=== PATIENT | female | born 1975 | race Caucasian/White ===

== ENCOUNTER 2016-08-20 17:48 | Emergency (ER) | payer OTHER ==
[2016-08-20 17:53] VITALS: BP 115/74; PULSE 84; RESP 16; TEMP 97.2
--- NOTE | 2016-08-20 18:00 | ED ---
Upper Extremity HPI - General Chief Complaint: Extremity Injury, Upper Stated Complaint: RT HANDF INJURY FROM TRIP AND FALL Time Seen by Provider: 08/20/16 17:54 Source: patient, RN notes reviewed Mode of arrival: ambulatory Limitations: no limitations - History of Present Illness Initial Comments: 41-year-old female presents to the emergency department with a chief complaint of right hand pain. Patient states she fell onto her right hand complaint. Today. Patient now has increase of the thumb. Patient states she did not hit her head she has no other injuries from the incident.Patient denies any recent fever, chills, shortness of breath, chest pain, back pain, abdominal pain, nausea vomiting, numbness or tingling, dysuria or hematuria, constipation or diarrhea, headaches or visual changes, or any other current symptoms. MD Complaint: Injury to:: right Other Extremity Injury: Hand: Right Other Injuries: none Place: home Severity scale (1-10): 5 Improves With: none Worsens With: none Context: fall Associated Symptoms: denies other symptoms - Related Data Previous Rx's Medication Instructions Recorded Ibuprofen [Motrin] 800 mg PO Q6HR PRN #20 tab 08/20/16 Allergies Allergy/AdvReac Type Severity Reaction Status Date / Time No Known Allergies Allergy Verified 08/20/16 17:53 Review of Systems ROS Statement: Those systems with pertinent positive or pertinent negative responses have been documented in the HPI. ROS Other: All systems not noted in ROS Statement are negative. Past Medical History Past Medical History: No Reported History Additional Past Medical History / Comment(s): kidney stones History of Any Multi-Drug Resistant Organisms: None Reported Past Surgical History: Orthopedic Surgery, Tubal Ligation Past Psychological History: No Psychological Hx Reported Smoking Status: Current every day smoker Past Alcohol Use History: None Reported Past Drug Use History: Marijuana General Exam - General Exam Comments Initial Comments: General: The patient is awake and alert, in no distress, and does not appear acutely ill. Neck: The neck is supple, there is no tenderness. Cardiovascular: There is a regular rate and rhythm. No murmur, rub or gallop is appreciated. Respiratory: Lungs are clear to auscultation, respirations are non-labored, breath sounds are equal. No wheezes, stridor, rales, or rhonchi. Musculoskeletal: Sensation was drinking fluids. The right upper extremity. Full range of motion of the right wrist and right hand. Patient does appear to have anatomical snuffbox tenderness. No tenderness throughout the hand. The knee. No swelling. Neurological: CN II-XII intact, There are no obvious motor or sensory deficits. Coordination appears grossly intact. Speech is normal. Skin: Skin is warm and dry and no rashes or lesions are noted. Psychiatric: Normal mood and affect. Limitations: no limitations Course Vital Signs 08/20/16 17:49 Temperature 97.2 F L Pulse Rate 84 Respiratory 16 Rate Blood Pressure 115/74 O2 Sat by Pulse 99 Oximetry Procedures - Orthopedic Splinting/Casting Injury #1 Side: right Upper Extremity Injury Location: hand Upper Extremity Immobilizer: thumb spica (short arm) Medical Decision Making - Medical Decision Making 41-year-old female presents for a right hand pain. This time x-rays reviewed acute process of the scaphoid with she is tender over the anatomical snuffbox. This time we did place her in a splint and give her follow-up with orthopedic. We discussed return Parameters and all the patient's family's questions. She stated that she understood and she is in agreement with the plan. This time she' ll be discharged home. Disposition Clinical Impression: Sprain of right hand, Scaphoid fracture of wrist Disposition: HOME SELF-CARE Condition: Stable Instructions: Hand Fracture (ED), Hand Sprain (ED) Additional Instructions: Please use medication as discussed. Please follow up with family doctor if symptoms have not improved over the next two days. Please return to the emergency room if your symptoms increase or worsen or for any other concerns. Prescriptions: Ibuprofen [Motrin] 800 mg PO Q6HR PRN #20 tab PRN Reason: Pain Referrals: Wellington Joy DO [Primary Care Provider] - 1-2 days Time of Disposition: 18:37
--- NOTE | 2016-08-20 18:35 | XR ---
EXAMINATION TYPE: XR hand complete RT DATE OF EXAM: 08/20/2016 6:15 PM COMPARISON: NONE HISTORY: Pain after injury TECHNIQUE: 3 Views FINDINGS: On the oblique view there is a scaphoid waist submillimeter horizontal linear lucency, saul elate for anatomic snuffbox tenderness. Dedicated scaphoid view can be obtained to further characteri ze at this time. Alternatively, follow-up radiographs in 7 days can be obtained, or use of CT or MRI can be used for this purpose if clinically indicated. The bones and joints and soft tissues are otherwise negative for fracture or malalignment. IMPRESSION: SUSPICIOUS FINDING SUGGESTS THE POSSIBILITY OF NONDISPLACED SUBTLE SCAPHOID WAIST FRACTUR E.
--- NOTE | 2016-08-20 18:38 | ED ---
Disposition Clinical Impression: Sprain of right hand, Scaphoid fracture of wrist Disposition: HOME SELF-CARE Condition: Stable Instructions: Hand Fracture (ED), Hand Sprain (ED) Additional Instructions: Please use medication as discussed. Please follow up with family doctor if symptoms have not improved over the next two days. Please return to the emergency room if your symptoms increase or worsen or for any other concerns. Prescriptions: Ibuprofen [Motrin] 800 mg PO Q6HR PRN #20 tab PRN Reason: Pain Referrals: Wellington Joy DO [Primary Care Provider] - 1-2 days Sharan Mckeon MD [STAFF PHYSICIAN] - 1-2 days Time of Disposition: 18:38
== END 2016-08-20 18:50 | disposition home or self-care (01) ==
LOC: EC 17:48
DX: S62.001A Unspecified fracture of navicular [scaphoid] bone of right wrist, initial encounter for closed fracture (principal); S63.91XA Sprain of unspecified part of right wrist and hand, initial encounter; F17.200 Nicotine dependence, unspecified, uncomplicated; W01.0XXA Fall on same level from slipping, tripping and stumbling without subsequent striking against object, initial encounter; Y93.67 Activity, basketball
CPT/HCPCS: 29125; 99283

== ENCOUNTER → 2018-09-06 | Outpatient (CLI) | payer OTHER ==
--- NOTE | 2018-09-06 13:27 | XR ---
EXAMINATION TYPE: XR thoraco lumbar junction DATE OF EXAM: 09/06/2018 COMPARISON: NONE HISTORY: Pain TECHNIQUE: 3 views of the thoracolumbar junction submitted FINDINGS: Pedicles intact. Vertebral body height and disc interspaces preserved. There is hypertrophic spurring involving the upper lumbar spine. No compression deformities. IMPRESSION: 1. Hypertrophic spurring. Correlate with MRI as clinically warranted.
== END | disposition home or self-care (01) ==
LOC: RADXRMAIN 12:58
PROVIDERS: ATTEND Family Medicine
DX: M25.78 Osteophyte, vertebrae (principal); R10.9 Unspecified abdominal pain; M54.5 Low back pain
CPT/HCPCS: 72080

== ENCOUNTER → 2018-09-23 | Outpatient (CLI) | payer OTHER ==
--- NOTE | 2018-09-24 09:09 | CT ---
EXAMINATION TYPE: CT abdomen pelvis w con DATE OF EXAM: 09/23/2018 COMPARISON: 09/10/2015 INDICATION: Right sided flank and back pain. DLP: 642.5 mGycm, Automated exposure control for dose reduction was used. CONTRAST: 100ml mL of Isovue 300. Study performed with Oral Contrast TECHNIQUE: Axial images were obtained from above the diaphragm to the pubic rami in the axial plane a t 5 mm thick sections. Reconstructed images are reviewed on the computer in the coronal plane. FINDINGS: Limited CT sections are obtained the lung bases. The lung bases are clear. CT ABDOMEN: Liver: Normal Spleen: Normal Pancreas: Normal Adrenal glands: The adrenal glands are normal. Gallbladder: Normal Kidneys: No masses are evident. No hydronephrosis is present. No cysts are present. Delayed images were obtained through the kidneys, which remain unremarkable. No hydroureter is evident. Aorta: Normal Inferior vena cava: Normal. CT PELVIS: Loops of bowel within the abdomen and pelvis are normal. There are loops of bowel which are incom pletely distended or lack oral contrast limiting their evaluation. Appendix: Not identified. No suspicious tubular structures are evident. No suspicious mesenteric stra nding is evident. Urinary bladder: Normal. Genitourinary structures: Uterus appears normal. Adnexal regions are within normal limits. There is a probable cyst on the right kidney measuring 1.7 cm. No free fluid is pelvis. Osseous structures: No suspicious lytic or sclerotic lesions. IMPRESSIONS: 1. No suspicious abnormality to account for right flank and back pain
== END | disposition home or self-care (01) ==
LOC: RADCTMAIN 16:12
PROVIDERS: ATTEND Family Medicine
DX: R10.9 Unspecified abdominal pain (principal)
CPT/HCPCS: 74177; Q9967

== ENCOUNTER → 2018-12-15 | Outpatient (CLI) | payer OTHER ==
--- NOTE | 2018-12-15 08:02 | MR ---
EXAMINATION TYPE: MR tspine/lspine wo con DATE OF EXAM: 12/15/2018 COMPARISON: Thoracolumbar spine x-rays dated 09/06/2018 HISTORY: Pain in thoracic spine / Low back pain TECHNIQUE: Multiplanar, multisequence imaging of the thoracic and lumbar spine is performed without I V contrast. FINDINGS: Vertebral body heights and alignment are maintained of the thoracic spine. Multilevel disc desiccatio n is mild. Spinal cord signal is within normal limits. Bone marrow signal is also within normal limit s. No focal disc herniation, spinal canal stenosis, nor neural foraminal narrowing is seen of the tho racic spine. At T11-T12 there is a left paracentral annular tear. At T12-L1 there are Schmorl's nodes . Vertebral body heights and alignment are maintained of the lumbar spine. Multilevel disc desiccation is seen. T1/T2 hyperintense vertebral body hemangioma is present L1. Conus medullaris is unremarkable terminating at L1-L2. Rudimentary disc is present at S1-S2. Modic type II degenerative endplate wood ges are seen of the anterior aspect of the superior endplates of L3 and L4. L1-L2: Disc desiccation without spinal canal stenosis nor neuroforaminal narrowing. No focal disc her niation. L2-L3: There is a broad-based disc bulge and minimal facet arthropathy without spinal canal stenosis nor neural foraminal narrowing. Disc bulge is noted to be left eccentric with small annular tear is l eft foraminal on sagittal image 3 of the T2 weighted nonfat sat sequence. L3-L4: There is a left eccentric broad-based disc bulge creating mild left neural foraminal narrowing . Right neural foramen and spinal canal are patent. Minimal facet arthropathy. L4-L5: There is a left foraminal annular tear and small disc herniation superimposed upon a broad-bas ed disc bulge creating mild bilateral neural foraminal narrowing (left greater than right) without sp inal canal stenosis. Mild facet arthropathy and ligamentum flavum buckling are also seen. L5-S1: There is ligamentum flavum buckling and facet arthropathy as well as a broad-based disc bulge without spinal canal stenosis nor neural foraminal narrowing. No focal disc herniation. IMPRESSION: 1. Small left foraminal disc herniation at L4-L5 creating mild left neural foraminal narrowing. Mild right neural foraminal narrowing is also seen at this level to a lesser degree secondary to a broad-b ased disc bulge. 2. Left eccentric disc bulge at L3-L4 creating mild left neural foraminal narrowing. 3. Left eccentric disc bulge at L2-L3 with small left foraminal annular tear. 4. No focal disc herniation of the thoracic spine. Mild multilevel degenerative disc disease. 5. No vertebral body height loss nor malalignment of the thoracic nor lumbar spine.
== END | disposition home or self-care (01) ==
LOC: RADMRIMAIN 06:48
PROVIDERS: ATTEND Family Medicine
DX: M48.061 Spinal stenosis, lumbar region without neurogenic claudication (principal); M51.26 Other intervertebral disc displacement, lumbar region; M54.6 Pain in thoracic spine
CPT/HCPCS: 72146; 72148

== ENCOUNTER → 2020-08-31 | Outpatient (CLI) | payer OTHER | END | disposition home or self-care (01) | LOC: LABWHC1 08:23 | PROVIDERS: ATTEND Family Medicine | DX: Z20.822 Contact with and (suspected) exposure to COVID-19 (principal) | CPT/HCPCS: U0003; C9803; U0005 ==

== ENCOUNTER → 2022-07-03 | Outpatient (CLI) | payer OTHER ==
--- NOTE | 2022-07-03 16:21 | US ---
EXAMINATION TYPE: US venous doppler duplex LE RT DATE OF EXAM: 07/03/2022 4:01 PM COMPARISON: NONE CLINICAL HISTORY: R60.0 EDEMA. SIDE PERFORMED: Right TECHNIQUE: The lower extremity deep venous system is examined utilizing real time linear array sonog maurice with graded compression, doppler sonography and color-flow sonography. VESSELS IMAGED: Common Femoral Vein Deep Femoral Vein Greater Saphenous Vein * Femoral Vein Popliteal Vein Small Saphenous Vein * Proximal Calf Veins (* superficial vessels) Grayscale, color doppler, spectral doppler imaging performed of the deep veins of the lower extremiti es. There is normal flow, compressibility, vascular waveforms. Right Leg: Negative for DVT At discolouration is a superficial clot with no color flow identified. IMPRESSION: 1. No evidence for deep venous thrombosis of the right lower extremity. 2. Superficial venous thrombosis in the right anterior calf at site of discoloration.
== END | disposition home or self-care (01) ==
LOC: RADUSWWP 15:27
PROVIDERS: ATTEND Family Medicine
DX: I82.811 Embolism and thrombosis of superficial veins of right lower extremity (principal); R60.0 Localized edema

== ENCOUNTER → 2022-07-08 | Outpatient (CLI) | payer OTHER ==
--- NOTE | 2022-07-09 07:54 | MM ---
Reason for Exam: Screening (asymptomatic). Patient History: Menarche at age 15. First Full-Term at age 26. Premenopausal. Maternal grandmother had breast cancer. Paternal grandmother had breast cancer. Risk Values: Rosa 5 year model risk: 0.7%. NCI Lifetime model risk: 8.7%. Tissue Density: The breast tissue is heterogeneously dense. This may lower the sensitivity of mammography. Findings: Analyzed By CAD. There is no suspicious group of microcalcifications in either breast. Within the upper outer left breast approximately 6.8 cm from the nipple there is asymmetric density with the suggestion of distortion. Additional views are recommended. Overall Assessment: Incomplete: need additional imaging evaluation, BI-RAD 0 Management: Diagnostic Mammogram of the left breast. A clinical breast exam by your physician is recommended on an annual basis and results should be correlated with mammographic findings. Electronically signed and approved by: Shahid Jaime M.D. Radiologis
== END | disposition home or self-care (01) ==
LOC: RADMAMWWP 08:24
PROVIDERS: ATTEND Family Medicine
DX: Z12.31 Encounter for screening mammogram for malignant neoplasm of breast (principal); Z80.3 Family history of malignant neoplasm of breast
CPT/HCPCS: 77067

== ENCOUNTER → 2022-07-10 | Outpatient (CLI) | payer OTHER ==
--- NOTE | 2022-07-10 14:38 | MM ---
Reason for Exam: Additional evaluation requested from abnormal screening. Last screening mammogram was performed less than 1 month ago. Patient History: Menarche at age 15. First Full-Term at age 26. Premenopausal. Maternal grandmother had breast cancer. Paternal grandmother had breast cancer. Risk Values: Rosa 5 year model risk: 0.7%. NCI Lifetime model risk: 8.7%. Prior Study Comparison: 07/08/2022 Bilateral MG screening mammo w CAD, [facility]. Tissue Density: Left: The breast tissue is heterogeneously dense. This may lower the sensitivity of mammography. Findings: Analyzed By CAD. On spot compression, no persisting abnormality along the lateral aspect of the breast. The questioned superior asymmetric density appears to disperse on the true lateral view but incompletely disperses on the spot MLO view. Further ultrasound evaluation recommended. Overall Assessment: Incomplete: need additional imaging evaluation, BI-RAD 0 Management: Diagnostic Breast Ultrasound of the left breast. Superior half. Electronically signed and approved by: Zari James M.D. Radiologist
--- NOTE | 2022-07-10 15:04 | USB ---
Reason for Exam: Additional evaluation requested from abnormal screening. Patient History: Menarche at age 15. First Full-Term at age 26. Premenopausal. Maternal grandmother had breast cancer. Paternal grandmother had breast cancer. Risk Values: Rosa 5 year model risk: 0.7%. NCI Lifetime model risk: 8.7%. Technique: Method: Targeted. Prior Study Comparison: 07/08/2022 Bilateral MG screening mammo w CAD, [facility]. Findings: The upper section of the breast of the left breast, the axilla of the left breast and the retroareolar of the left breast were scanned. Targeted ultrasound left breast superior half from 9:00 to 3:00 including the subareolar region and axilla. * At the 12:00 position, 2 cm from the nipple, there is a 6 x 5 x 4 mm cyst. * At the 2:00 position, 7 cm from the nipple, there is a 6 x 5 x 4 mm cyst. * No other solid or cystic lesion. Scattered dense tissue is present. * No axillary lymphadenopathy. Overall Assessment: Probably benign, BI-RAD 3 Management: Diagnostic Mammogram of the left breast in 6 months. 1. Patient should continue monthly self breast exams. 2. A clinical breast exam by your physician is recommended on an annual basis. 3. This exam should not preclude additional follow-up of suspicious palpable abnormalities. Electronically signed and approved by: Zari James M.D. Radiologist
== END | disposition home or self-care (01) ==
LOC: RADMAMWWP 13:41
PROVIDERS: ATTEND Family Medicine
DX: R92.8 Other abnormal and inconclusive findings on diagnostic imaging of breast (principal); Z80.3 Family history of malignant neoplasm of breast
CPT/HCPCS: 77065; 76642; G0279; 77061

== ENCOUNTER → 2022-10-01 | Outpatient (CLI) | payer OTHER ==
--- NOTE | 2022-10-01 13:24 | XR ---
EXAMINATION TYPE: XR elbow limited RT DATE OF EXAM: 10/01/2022 COMPARISON: None HISTORY: Lateral epicondylitis TECHNIQUE: 2 view right elbow FINDINGS: No acute fracture or dislocation is evident. Radius aligns normally with the humerus. Anter ior fat pad is normal. No elevation of posterior fat pad is evident which is normal. Soft tissues eric ear normal. No suspicious joint effusions or osseous abnormality along the lateral elbow is evident. MRI can be p erformed as follow-up as clinically indicated. IMPRESSION: 1. No acute osseous abnormality right elbow
== END | disposition home or self-care (01) ==
LOC: RADXRMAIN 10:49
PROVIDERS: ATTEND Nurse Practitioner Family
DX: M77.11 Lateral epicondylitis, right elbow (principal)

== ENCOUNTER → 2022-11-18 | Outpatient (CLI) | payer OTHER ==
--- NOTE | 2022-11-23 22:04 | MR ---
EXAMINATION TYPE: MR elbow RT wo/w con DATE OF EXAM: 11/18/2022 COMPARISON: Radiographs 10/01/2022 HISTORY: 47-year-old female M77.11, Right elbow pain, swelling, and limited movement. Technique: Multiplanar, multisequence images of the right were obtained before and after administrati on of 7.5 mL intravenous Gadavist gadolinium contrast. FINDINGS: The distal biceps tendon as well as the triceps insertion are both intact. No acute or healing fracture. No suspicious bone marrow replacement. No abnormal enhancing lesion is seen. Both radiocapitellar and ulnar trochlear joints are intact. No significant joint effusion. There is thickening and heterogeneous signal at the common extensor tendon origin with a small 5 x 3 mm intrasubstance tear noted. The underlying LCL complex is intact. The common flexor tendon origin pronator mass are intact as is the underlying UCL. Mild thickening of the ulnar nerve along the sulcus ulnaris up to 10 sq mm. There may be some mild fa scicular thickening here as well. The brachial artery and median neurovascular bundle show no gross abnormality. IMPRESSION: 1. Moderate common extensor origin tendinosis along with a small intrasubstance tear measuring 5 x 3 mm. 2. No other discrete injury is identified. 3. Slight thickening of the ulnar nerve up to 10 sq mm at the medial aspect of the elbow could repres ent a mild contusion or ulnar neuropathy.
== END | disposition home or self-care (01) ==
LOC: RADMRIMAIN 20:45
PROVIDERS: ATTEND Family Medicine
DX: M77.11 Lateral epicondylitis, right elbow (principal); S56.511A Strain of other extensor muscle, fascia and tendon at forearm level, right arm, initial encounter; X58.XXXA Exposure to other specified factors, initial encounter
CPT/HCPCS: 73223; A9585

== ENCOUNTER 2023-03-11 15:53 | Emergency (ER) | payer OTHER ==
[2023-03-11 16:09] VITALS: RESP 18; TEMP 97.6
--- NOTE | 2023-03-11 16:22 | ED ---
General Adult HPI - General Chief complaint: Nausea/Vomiting/Diarrhea Stated complaint: SOB Time Seen by Provider: 03/11/23 15:58 Source: patient, RN notes reviewed, old records reviewed Mode of arrival: ambulatory Limitations: no limitations - History of Present Illness Initial comments: 47-year-old female with an episode of nausea vomiting. Patient had been in the emergency department with her daughter who is a patient and she began to feel flushed, had one episode of vomiting. She was registered as a patient but states that she does not want any further evaluation or treatment. She states that this happens frequently and her primary care doctor is aware. She states she feels better and does not want any testing or treatment at this time. - Related Data Previous Rx's Medication Instructions Recorded Ibuprofen [Motrin] 800 mg PO Q6HR PRN #20 tab 08/20/16 Allergies Allergy/AdvReac Type Severity Reaction Status Date / Time No Known Allergies Allergy Verified 03/11/23 16:05 Review of Systems ROS Statement: Those systems with pertinent positive or pertinent negative responses have been documented in the HPI. ROS Other: All systems not noted in ROS Statement are negative. Past Medical History Past Medical History: No Reported History Additional Past Medical History / Comment(s): kidney stones History of Any Multi-Drug Resistant Organisms: None Reported Past Surgical History: Orthopedic Surgery, Tubal Ligation Past Psychological History: Anxiety, Depression Smoking Status: Current every day smoker Past Alcohol Use History: None Reported Past Drug Use History: Marijuana General Exam Limitations: no limitations General appearance: alert, in no apparent distress Head exam: Present: atraumatic, normocephalic Eye exam: Present: normal appearance, PERRL Neck exam: Present: normal inspection. Absent: tenderness Respiratory exam: Present: normal lung sounds bilaterally. Absent: respiratory distress, wheezes Cardiovascular Exam: Present: regular rate, normal rhythm GI/Abdominal exam: Absent: distended Neurological exam: Present: alert, oriented X3 Psychiatric exam: Present: normal affect, normal mood Skin exam: Present: warm, dry, intact Course Vital Signs 03/11/23 16:00 Temperature 97.6 F Pulse Rate 73 Respiratory 18 Rate Blood Pressure 149/94 O2 Sat by Pulse 99 Oximetry Medical Decision Making - Medical Decision Making Was pt. sent in by a medical professional or institution (, PA, SURGICAL DEVICE SALES REPRESENTATIVE, urgent care, hospital, or [facility]...) When possible be specific @ -No Did you speak to anyone other than the patient for history (EMS, parent, family, police, friend...)? What history was obtained from this source @ -No Did you review nursing and triage notes (agree or disagree)? Why? @ -I reviewed and agree with nursing and triage notes Were old charts reviewed (outside hosp., previous admission, EMS record, old EKG, old radiological studies, urgent care reports/EKG's, [facility] records)? Report findings @ -No old charts were reviewed Differential Diagnosis (chest pain, altered mental status, abdominal pain women, abdominal pain men, vaginal bleeding, weakness, fever, dyspnea, syncope, headache, dizziness, GI bleed, back pain, seizure, CVA, palpatations, mental health, musculoskeletal)? @ -[Nausea vomiting and near syncope EKG interpreted by me (3pts min.). @ -As above X-rays interpreted by me (1pt min.). @ -None done CT interpreted by me (1pt min.). @ -None done U/S interpreted by me (1pt. min.). @ -None done What testing was considered but not performed or refused? (CT, X-rays, U/S, labs)? Why? @ -None What meds were considered but not given or refused? Why? @ -None Did you discuss the management of the patient with other professionals (professionals i.e. , PA, SURGICAL DEVICE SALES REPRESENTATIVE, lab, RT, psych nurse, social service liaison, advertising project manager, teacher, financial services officer, heel caser)? Give summary @ -No Was smoking cessation discussed for >3mins.? @ -No Was critical care preformed (if so, how long)? @ -No Were there social determinants of health that impacted care today? How? (H omelessness, low income, unemployed, alcoholism, drug addiction, transportation, low edu. Level, literacy, decrease access to med. care, prison, rehab)? @ -No Was there de-escalation of care discussed even if they declined (Discuss DNR or withdrawal of care, Hospice)? DNR status @ -No What co-morbidities impacted this encounter? (DM, HTN, Smoking, COPD, CAD, Cancer, CVA, ARF, Chemo, Hep., AIDS, mental health diagnosis, sleep apnea, morbid obesity)? @ -None Was patient admitted / discharged? Hospital course, mention meds given and route, prescriptions, significant lab abnormalities, going to OR and other pertinent info. @ -[Patient with an episode of lightheadedness, nausea vomiting, resolved. Patient requests that no further treatment or evaluation because complete. She states she feels better and wishes to be discharged. I will respect these wishes. Undiagnosed new problem with uncertain prognosis? @ -No Drug Therapy requiring intensive monitoring for toxicity (Heparin, Nitro, Insulin, Cardizem)? @ -No Were any procedures done? @ -No Diagnosis/symptom? @Nausea vomiting Acute, or Chronic, or Acute on Chronic? @Acute Uncomplicated (without systemic symptoms) or Complicated (systemic symptoms)? @ -default Side effects of treatment? @ -No Exacerbation, Progression, or Severe Exacerbation? @ -No Poses a threat to life or bodily function? How? (Chest pain, [place], MA, pneumonia, PE, COPD, DKA, ARF, appy, cholecystitis, CVA, Diverticulitis, Homicidal, Suicidal, threat to staff... and all critical care pts) @ -Low risk Disposition Clinical Impression: Nausea & vomiting Disposition: HOME SELF-CARE Condition: Fair Instructions (If sedation given, give patient instructions): Acute Nausea and Vomiting (ED) Is patient prescribed a controlled substance at d/c from ED?: No Referrals: Wellington Joy DO [Primary Care Provider] - 1-2 days Time of Disposition: 16:22
[2023-03-11 17:02] VITALS: BP 130/85; PULSE 94
== END 2023-03-11 16:51 | disposition home or self-care (01) ==
LOC: EC 15:53
DX: R11.2 Nausea with vomiting, unspecified (principal); F17.200 Nicotine dependence, unspecified, uncomplicated; F12.90 Cannabis use, unspecified, uncomplicated
CPT/HCPCS: 99283